=== PATIENT | male | born 1945 | race Caucasian/White ===

== ENCOUNTER 2017-12-24 07:10 | Day surgery (SDC) | payer OTHER ==
[2017-12-22 12:41] VITALS: BMI 26.4
[2017-12-24] MEDS ORDERED: LIDOCAINE HCL/PF 2% SDV 5ML VIAL ONE (07:17)
[2017-12-24] MEDS ORDERED: PROPOFOL 20 ML ONE ×2 (07:17)
[2017-12-24 08:54] VITALS: PULSE 65
[2017-12-24 09:22] VITALS: BP 110/67; TEMP 98.1
== END 2017-12-24 09:24 | disposition home or self-care (01) ==
LOC: MERGE 07:10 → FASU-ENDO 07:10 → EDSEX 08:00 → FASU-ENDO 09:24
PROVIDERS: ATTEND Internal Medicine Gastroenterology
PROC: 0DJD8ZZ Inspection of Lower Intestinal Tract, Via Natural or Artificial Opening Endoscopic (ICD-10-PCS; principal; 2017-12-24 08:27)
DX: Z85.038 Personal history of other malignant neoplasm of large intestine (principal); Z98.0 Intestinal bypass and anastomosis status; K57.30 Diverticulosis of large intestine without perforation or abscess without bleeding

== ENCOUNTER 2022-01-03 07:44 | Inpatient (IN) | payer OTHER ==
[2022-01-03] MEDS ORDERED: SODIUM CHLORIDE 0.9% 500 ML INFUS.BAG IV ONE ×2 (07:56→09:35)
[2022-01-03] MEDS ORDERED: morphine CARPU-JECT 4 MG/1 ML DISP.SYRIN IVPUSH ONE (08:15)
[2022-01-03] MEDS ORDERED: ACETAMINOPHEN 1000 MG/100 ML BAG IVPB ONE (08:15)
[2022-01-03] MEDS ORDERED: morphine SULFATE 4 MG/ML VIAL ONE (08:16)
[2022-01-03] MEDS ORDERED: ACETAMINOPHEN INJECTION 100 ML IVPB ONE (08:16)
[2022-01-03] MEDS ORDERED: ONDANSETRON 4 MG/2 ML VIAL IVPUSH ONE (08:25)
[2022-01-03] MEDS ORDERED: ONDANSETRON 4 MG/2 ML VIAL ONE ×2 (08:51→13:54)
[2022-01-03 08:57] LABS: HEMATOCRIT 32.2 % (35.4-49); HEMOGLOBIN 11.4 G/dL (11.7-16.9); MCH 33.2 pg (25.7-33.7); MCHC 35.3 g/dl (32.0-35.9); MEAN PLT VOLUME 8.6 fl (7.5-11.1); PLATELET COUNT 153.7 10^3/uL (134-434); RBC 3.43 10^6/uL (4.00-5.60); RDW 12.9 % (11.9-15.9); WHITE BLOOD COUNT 7.7 10^3/uL (4.0-10.8)
[2022-01-03 09:05] LABS: ALBUMIN 2.8 g/dl (3.4-5.0); BILIRUBIN,TOTAL 1.2 mg/dl (0.2-1); CALCIUM 8.6 mg/dl (8.5-10); MAGNESIUM 1.5 mg/dL (1.8-2.4); TOT PROT 6.8 g/dl (6.4-8.2)
[2022-01-03 09:15] LABS: INR 1.15 (0.83-1.09); PROTHROMBIN TIME (PATIENT) 13.2 SEC (9.7-13.0)
[2022-01-03] MEDS ORDERED: MAGNESIUM SULF 50% (8.12 MEQ/2 ML-1 GM VIAL) IVPB ONE (09:34)
[2022-01-03] MEDS ORDERED: PIPERACILLIN/TAZOB 4.5 GM 4.5 GM in DEXTROSE 5%-WATER 100 ML IVPB ONE (09:37)
[2022-01-03] MEDS ORDERED: KCL 10 MEQ IVPB 10 MEQ/100 ML INFUS.BAG IVPB SCH (09:45)
[2022-01-03] MEDS ORDERED: PIPERACILLIN/TAZOBACTAM 4.5 GM VIAL IVPB ONE (09:53)
[2022-01-03] MEDS ORDERED: MAGNESIUM 1GM/D5W - 1 GM/100 ML IVPB IVPB ONE (09:53)
[2022-01-03 11:52] LABS: EPITHELIAL CELLS RARE /hpf
[2022-01-03] MEDS ORDERED: LACTATED RINGERS SOLUTION 1,000 ML/1,000 ML INFUS.BAG IV SCH (12:00)
[2022-01-03] MEDS ORDERED: BUPIVACAINE HCL 100 ML ONE (12:54)
[2022-01-03] MEDS ORDERED: ROCURONIUM BROMIDE 50 MG/5 ML SYRINGE ONE (13:52)
[2022-01-03] MEDS ORDERED: SUCCINYLCHOLINE CHLORIDE 200 MG/10 ML SYRINGE ONE ×2 (13:52→15:50)
[2022-01-03] MEDS ORDERED: PROPOFOL 20 ML ONE ×2 (13:52→15:50)
[2022-01-03] MEDS ORDERED: LIDOCAINE HCL/PF 2% SDV 5ML VIAL ONE (13:53)
[2022-01-03] MEDS ORDERED: DEXAMETHASONE SOD PHOSPHATE 4 MG/1 ML VIAL ONE (13:54)
[2022-01-03] MEDS ORDERED: THROMBIN (BOVINE) 5,000 UNIT VIAL TP ONE (14:15)
[2022-01-03] MEDS ORDERED: NEOSTIGMINE METHYLSULFATE 0.5 MG/1 ML - 10 ML MDV ONE (14:26)
[2022-01-03] MEDS ORDERED: GLYCOPYRROLATE 0.2 MG/1 ML VIAL ONE (14:27)
[2022-01-03] MEDS ORDERED: SUGAMMADEX SODIUM 200 MG/2 ML VIAL ONE (16:13)
[2022-01-03 16:32] LABS: HEMATOCRIT 30.3 % (35.4-49); HEMOGLOBIN 10.4 G/dL (11.7-16.9); MCH 32.5 pg (25.7-33.7); MCHC 34.3 g/dl (32.0-35.9); MEAN CELL VOLUME 94.6 fl (80-96); MEAN PLT VOLUME 8.1 fl (7.5-11.1); PLATELET COUNT 151.7 10^3/uL (134-434); RDW 13.1 % (11.9-15.9); WHITE BLOOD COUNT 10.3 10^3/uL (4.0-10.8)
[2022-01-03 17:25] LABS: ALBUMIN 2.3 g/dl (3.4-5.0); BILIRUBIN,TOTAL 1.3 mg/dl (0.2-1); CALCIUM 7.8 mg/dl (8.5-10); TOT PROT 5.8 g/dl (6.4-8.2)
[2022-01-03] MEDS ORDERED: PIPERACILLIN/TAZOB 3.375 GM 3.375 GM in DEXTROSE 5%-WATER - 50 ML IVPB SCH (18:00)
[2022-01-03 18:05] LABS: ARTERIAL BLD GAS O2 SATURATION 98.1 % (95-98); ARTERIAL BLOOD GAS BASE EXCESS -3.2 mmol/L (-2-2); ARTERIAL BLOOD GAS PO2 114.5 mmHg (80-100); ARTERIAL BLOOD GAS pH 7.374 (7.350-7.450)
[2022-01-03 18:09] LABS: ALLENS TEST POSITIVE; VENT MODE A/C; VENT RATE 12
[2022-01-03] MEDS ORDERED: DEXTROSE 5%-WATER - 50 ML IVPB ONE (21:06)
[2022-01-03] MEDS ORDERED: PIPERACILLIN/TAZOBACTAM 3.375 GM VIAL IVPB ONE (21:06)
[2022-01-03] MEDS ORDERED: ACETYLCYSTEINE 20% 200MG/ML 4 ML VIAL *FOR ORAL / INH USE ONLY NEB ONE (21:15)
[2022-01-03] MEDS ORDERED: ALBUTEROL SO4 0.083% IH SOL 2.5 MG/3 ML VIAL.NEB. NEB ONE (21:23)
[2022-01-03] MEDS ORDERED: ACETYLCYSTEINE 20% 200MG/ML 4 ML VIAL *FOR ORAL / INH USE ONLY ONE (21:31)
[2022-01-03] MEDS: KCL 10 MEQ IVPB 10 MEQ/100 ML INFUS.BAG IVPB SCH ×3 (21:34→21:36)
[2022-01-03] MEDS: PIPERACILLIN/TAZOB 3.375 GM 3.375 GM in DEXTROSE 5%-WATER - 50 ML IVPB SCH (21:37)
[2022-01-03] MEDS: LACTATED RINGERS SOLUTION 1,000 ML/1,000 ML INFUS.BAG IV SCH (21:38)
[2022-01-04] MEDS ORDERED: PIPERACILLIN/TAZOBACTAM 3.375 GM VIAL IVPB ONE ×4 (01:51→20:53)
[2022-01-04] MEDS ORDERED: DEXTROSE 5%-WATER - 50 ML IVPB ONE ×4 (01:51→20:54)
[2022-01-04] MEDS ORDERED: PIPERACILLIN/TAZOB 3.375 GM 3.375 GM in DEXTROSE 5%-WATER - 50 ML IVPB SCH (02:00)
[2022-01-04] MEDS: PIPERACILLIN/TAZOB 3.375 GM 3.375 GM in DEXTROSE 5%-WATER - 50 ML IVPB SCH ×4 (02:25→21:07)
[2022-01-04 05:53] VITALS: BMI 25.2
[2022-01-04 07:36] LABS: BASO % 0.1 % (0-2.0); HEMATOCRIT 28.3 % (35.4-49); HEMOGLOBIN 9.6 GM/dL (11.7-16.9); LYMPH % 5.9 % (8-40); MCH 32.5 pg (25.7-33.7); MEAN CELL VOLUME 95.5 fl (80-96); MEAN PLT VOLUME 8.7 fl (7.5-11.1); MONO % 9.7 % (3.8-10.2); NEUT % 84.3 % (42.8-82.8); PLATELET COUNT 162 10^3/uL (134-434); RBC 2.97 M/mm3 (4.00-5.60); RDW 12.5 % (11.9-15.9); WHITE BLOOD COUNT 6.3 K/mm3 (4.0-10.0)
[2022-01-04] MEDS: LISINOPRIL 20 MG TABLET PO SCH (09:48)
[2022-01-04] MEDS: amLODIPine BESYLATE 5 MG TABLET (FP) PO SCH (09:48)
[2022-01-04] MEDS: METOPROLOL TARTRATE 50 MG TABLET (FP) PO SCH (09:49)
[2022-01-04] MEDS ORDERED: amLODIPine BESYLATE 5 MG TABLET (FP) PO SCH (10:00)
[2022-01-04] MEDS ORDERED: PATIENT'S OWN MEDICATION (NON-FORMULARY) (Metoprolol Tartrate [Metoprolol Tartrate] 100 MG PO SCH (10:00)
[2022-01-04] MEDS ORDERED: LISINOPRIL 20 MG TABLET PO SCH (10:00)
[2022-01-04 12:47] LABS: ALBUMIN 2.1 g/dl (3.4-5.0); BILIRUBIN,TOTAL 0.5 mg/dL (0.2-1); BLOOD UREA NITROGEN 19.3 mg/dL (7-18); CALCIUM 8.2 mg/dL (8.5-10.1); MAGNESIUM 2.4 mg/dL (1.8-2.4); TOT PROT 5.9 g/dl (6.4-8.2)
[2022-01-04] MEDS: LACTATED RINGERS SOLUTION 1,000 ML/1,000 ML INFUS.BAG IV SCH (21:07)
[2022-01-05] MEDS ORDERED: PIPERACILLIN/TAZOBACTAM 3.375 GM VIAL IVPB ONE ×4 (03:15→20:50)
[2022-01-05] MEDS ORDERED: DEXTROSE 5%-WATER - 50 ML IVPB ONE ×4 (03:15→20:50)
[2022-01-05] MEDS: PIPERACILLIN/TAZOB 3.375 GM 3.375 GM in DEXTROSE 5%-WATER - 50 ML IVPB SCH ×4 (03:19→21:10)
[2022-01-05] MEDS ORDERED: ONDANSETRON 4 MG/2 ML VIAL IVPUSH ONE (03:24)
[2022-01-05] MEDS: METOPROLOL TARTRATE 50 MG TABLET (FP) PO SCH (09:26)
[2022-01-05] MEDS: amLODIPine BESYLATE 5 MG TABLET (FP) PO SCH (09:26)
[2022-01-05] MEDS: LISINOPRIL 20 MG TABLET PO SCH (09:26)
[2022-01-06] MEDS ORDERED: ACETAMINOPHEN 325 MG TABLET (FP) PO PRN (01:42)
[2022-01-06] MEDS ORDERED: PIPERACILLIN/TAZOBACTAM 3.375 GM VIAL IVPB ONE ×4 (01:53→21:09)
[2022-01-06] MEDS ORDERED: DEXTROSE 5%-WATER - 50 ML IVPB ONE ×3 (01:54→21:09)
[2022-01-06] MEDS: PIPERACILLIN/TAZOB 3.375 GM 3.375 GM in DEXTROSE 5%-WATER - 50 ML IVPB SCH ×4 (02:24→21:29)
[2022-01-06 03:49] LABS: PH,URINE 5.5 (5.0-8.0); URINE APPEARANCE CLEAR; URINE BILIRUBIN NEGATIVE (NEGATIVE); URINE COLOR DK YELLOW; URINE GLUCOSE (UA) NEGATIVE (NEGATIVE); URINE KETONE NEGATIVE (NEGATIVE); URINE LEUK ESTERASE NEGATIVE (NEGATIVE); URINE NITRITE NEGATIVE (NEGATIVE); URINE PROTEIN NEGATIVE (NEGATIVE); URINE UROBILINOGEN 4.0 E.U/dl mg/dL (0.2-1.0)
[2022-01-06] MEDS: METOPROLOL TARTRATE 50 MG TABLET (FP) PO SCH (09:13)
[2022-01-06] MEDS: amLODIPine BESYLATE 5 MG TABLET (FP) PO SCH (09:13)
[2022-01-06] MEDS: LISINOPRIL 20 MG TABLET PO SCH (09:13)
[2022-01-06 09:17] LABS: HEMATOCRIT 32.3 % (35.4-49); HEMOGLOBIN 11.2 GM/dL (11.7-16.9); MCH 32.6 pg (25.7-33.7); MCHC 34.7 g/dl (32.0-35.9); PLATELET COUNT 305 10^3/uL (134-434); RBC 3.43 M/mm3 (4.00-5.60); RDW 12.9 % (11.9-15.9)
[2022-01-06 09:24] LABS: INR 1.2 (0.83-1.09); PROTHROMBIN TIME (PATIENT) 13.8 SEC (9.7-13.0)
[2022-01-06 09:37] LABS: ALBUMIN 2.4 g/dl (3.4-5.0); BLOOD UREA NITROGEN 18.7 mg/dL (7-18); CALCIUM 8.6 mg/dL (8.5-10.1)
[2022-01-06 09:40] LABS: CREATININE 1.2 mg/dL (0.55-1.3)
[2022-01-06 09:42] LABS: TOT PROT 6.7 g/dl (6.4-8.2)
[2022-01-06 10:14] LABS: ANISOCYTOSIS 0; HELMET CELLS 0; HOWELL-JOLLY BODIES 0; MACROCYTOSIS 0; OVALOCYTE 0; ROULEAU 0; SICKELED CELLS 0; TARGET CELLS 0; TEAR DROP CELLS 0; TOXIC GRANULATION 0
[2022-01-06] MEDS ORDERED: POLYETHYLENE GLYCOL (HEALTHYLAX) 3350 17 GM PACKET PO ONE (14:40)
[2022-01-06] MEDS: POLYETHYLENE GLYCOL (HEALTHYLAX) 3350 17 GM PACKET PO SCH (15:05)
[2022-01-07] MEDS ORDERED: PIPERACILLIN/TAZOBACTAM 3.375 GM VIAL IVPB ONE ×3 (02:16→15:11)
[2022-01-07] MEDS ORDERED: DEXTROSE 5%-WATER - 50 ML IVPB ONE ×3 (02:17→15:11)
[2022-01-07] MEDS: PIPERACILLIN/TAZOB 3.375 GM 3.375 GM in DEXTROSE 5%-WATER - 50 ML IVPB SCH ×3 (02:31→15:14)
[2022-01-07 07:00] LABS: BASO % 0.4 % (0-2.0); EOS % 1.7 % (0-4.5); HEMATOCRIT 28.1 % (35.4-49); HEMOGLOBIN 9.7 GM/dL (11.7-16.9); LYMPH % 15.1 % (8-40); MCH 32.4 pg (25.7-33.7); MCHC 34.6 g/dl (32.0-35.9); MEAN CELL VOLUME 93.6 fl (80-96); MEAN PLT VOLUME 7.7 fl (7.5-11.1); MONO % 7.6 % (3.8-10.2); NEUT % 75.2 % (42.8-82.8); PLATELET COUNT 290 10^3/uL (134-434); RDW 12.7 % (11.9-15.9); WHITE BLOOD COUNT 7.6 K/mm3 (4.0-10.0)
[2022-01-07 07:17] LABS: CALCIUM 8.1 mg/dL (8.5-10.1)
[2022-01-07 07:18] LABS: ALBUMIN 2.1 g/dl (3.4-5.0); BLOOD UREA NITROGEN 14.4 mg/dL (7-18); MAGNESIUM 1.9 mg/dL (1.8-2.4)
[2022-01-07 07:21] LABS: CREATININE 0.9 mg/dL (0.55-1.3)
[2022-01-07 07:22] LABS: BILIRUBIN,TOTAL 0.7 mg/dL (0.2-1); TOT PROT 5.6 g/dl (6.4-8.2)
[2022-01-07] MEDS: POLYETHYLENE GLYCOL (HEALTHYLAX) 3350 17 GM PACKET PO SCH (09:20)
[2022-01-07] MEDS: METOPROLOL TARTRATE 50 MG TABLET (FP) PO SCH (09:20)
[2022-01-07] MEDS: amLODIPine BESYLATE 5 MG TABLET (FP) PO SCH (09:20)
[2022-01-07] MEDS: LISINOPRIL 20 MG TABLET PO SCH (09:20)
[2022-01-07 11:02] VITALS: BP 136/61; PULSE 95; TEMP 98.2
[2022-01-08 08:09] LABS: CARCINOEMBRYONIC ANTIGEN 2.8 ng/mL (0.0-4.7)
== END 2022-01-07 16:52 | disposition home or self-care (01) | DRG 417 ==
LOC: FER 07:44 → UNDOADMIN 09:45 → FM/S 09:45 → FASUSAT 13:38 → SUATTDRO 13:38 → FM/S 13:39 → JICU 19:35 → J6S 01-05 14:13
PROVIDERS: ADMIT Internal Medicine; ATTEND Nurse Practitioner Family
PROC: 0F904ZZ Drainage of Liver, Percutaneous Endoscopic Approach (ICD-10-PCS; 2022-01-03)
PROC: 5A1935Z Respiratory Ventilation, Less than 24 Consecutive Hours (ICD-10-PCS; 2022-01-03)
PROC: 0BH17EZ Insertion of Endotracheal Airway into Trachea, Via Natural or Artificial Opening (ICD-10-PCS; 2022-01-03)
PROC: 0FT44ZZ Resection of Gallbladder, Percutaneous Endoscopic Approach (ICD-10-PCS; principal; 2022-01-03 14:10)
DX: K80.00 Calculus of gallbladder with acute cholecystitis without obstruction (principal); K75.0 Abscess of liver; J95.821 Acute postprocedural respiratory failure; J98.11 Atelectasis; E87.1 Hypo-osmolality and hyponatremia; C18.9 Malignant neoplasm of colon, unspecified; I10 Essential (primary) hypertension; E78.5 Hyperlipidemia, unspecified; N40.0 Benign prostatic hyperplasia without lower urinary tract symptoms; E87.6 Hypokalemia; E83.42 Hypomagnesemia
CPT/HCPCS: 36415; 36600; 70470-TC; 70553-TC; 71045-TC-FY; 71275-TC; 74177-TC; 80053; 81003; 81015; 82378; 82550; 82803; 82962; 83605; 83690; 83735; 84484; 85025; 85027; 85610; 86140; 86301; 86850; 86900; 86901; 87040; 87086; 88304-TC; 93005; 94002; 94640; 94760; 97116-GP; 97162-GP; 99285-25; A9579; C9803-CS; Q9967; U0003; U0005

== ENCOUNTER 2023-01-19 10:14 | Day surgery (SDC) | payer OTHER ==
[2023-01-16 15:24] VITALS: BMI 27.9
[2023-01-19 12:36] VITALS: RESP 20; TEMP 97
[2023-01-19 12:45] VITALS: BP 96/54; PULSE 64
== END 2023-01-19 12:30 | disposition home or self-care (01) ==
LOC: FASU-ENDO 10:14
PROVIDERS: ATTEND Internal Medicine Gastroenterology
PROC: 0DBL8ZX Excision of Transverse Colon, Via Natural or Artificial Opening Endoscopic, Diagnostic (ICD-10-PCS; 2023-01-19)
PROC: 0DBH8ZX Excision of Cecum, Via Natural or Artificial Opening Endoscopic, Diagnostic (ICD-10-PCS; 2023-01-19)
PROC: 0DBK8ZX Excision of Ascending Colon, Via Natural or Artificial Opening Endoscopic, Diagnostic (ICD-10-PCS; principal; 2023-01-19 11:34)
DX: Z12.11 Encounter for screening for malignant neoplasm of colon (principal); D12.0 Benign neoplasm of cecum; D12.2 Benign neoplasm of ascending colon; Z85.038 Personal history of other malignant neoplasm of large intestine; Z80.0 Family history of malignant neoplasm of digestive organs; Z83.71 Family history of colonic polyps
CPT/HCPCS: 88305-TC